=== PATIENT | male | born 1965 | race Caucasian/White ===

== ENCOUNTER 2022-01-15 06:33 | Day surgery (SDC) | payer OTHER ==
[~2022-01-15] VITALS: Ht 180.3 cm; Wt 78.1 kg
[~2022-01-15 06:33] MED LIST: CYCL10 PO; HYDACE5 PO; HYDHCL25 PO; MECL25 PO; NAPR500 PO; Norco 5-325 Ta1 EACH PO; Zofran Odt4 MG SL
== END 2022-01-15 09:03 | disposition home or self-care (01) ==
LOC: ORSCSDS 06:33
PROVIDERS: Surgery
PROC: 0DJD8ZZ Inspection of Lower Intestinal Tract, Via Natural or Artificial Opening Endoscopic (ICD-10-PCS; principal; 2022-01-15 08:00)
DX: Z12.11 Encounter for screening for malignant neoplasm of colon (principal); Z86.010 Personal history of colon polyps; I10 Essential (primary) hypertension; E78.5 Hyperlipidemia, unspecified; Z79.899 Other long term (current) drug therapy
CPT/HCPCS: J2704; J7120